=== PATIENT | female | born 1940 | race Caucasian/White ===

== ENCOUNTER → 2016-10-10 | Outpatient (CLI) | payer OTHER | END | disposition home or self-care (01) | LOC: CFH 08:36 | PROVIDERS: ATTEND Nurse Practitioner Primary Care | DX: Z12.31 Encounter for screening mammogram for malignant neoplasm of breast (principal) | CPT/HCPCS: G0202 ==

== ENCOUNTER 2018-10-01 12:20 | Outpatient (CLI) | payer MEDICARE | END 2018-10-01 23:59 | disposition home or self-care (01) | LOC: RAD 12:20 → EDSTATUS 14:00 → RAD 23:59 | PROVIDERS: ATTEND Nurse Practitioner Primary Care | DX: K76.0 Fatty (change of) liver, not elsewhere classified (principal); K86.89 Other specified diseases of pancreas; K44.9 Diaphragmatic hernia without obstruction or gangrene; M51.36 Other intervertebral disc degeneration, lumbar region; Z98.890 Other specified postprocedural states | CPT/HCPCS: 74178; Q9967 ==

== ENCOUNTER 2019-03-17 08:01 | Outpatient (CLI) | payer MEDICARE ==
[~2019-03-17 08:01] MED LIST: AMIT25TA PO; AMLO2.5T5 PO; ASPI-496 PO; ATOR20TA37 PO; CYAN100072 INJ; LACT1CAP61 PO; LOSA100T14 PO; MULT1TAB60 PO; NIAC400C5 PO; OMEG1CAP39 PO; [UNRECOGNIZED DRUG - CODE] PO
[2019-03-17] MEDS ORDERED: OMNIPAQUE 350 MG/ML, 100ML BOTTLE ONE (16:07)
== END 2019-03-17 23:59 | disposition home or self-care (01) ==
LOC: CFH 08:01
PROVIDERS: ATTEND Internal Medicine Geriatric Medicine
DX: K86.2 Cyst of pancreas (principal); I10 Essential (primary) hypertension; F32.9 Major depressive disorder, single episode, unspecified; E78.5 Hyperlipidemia, unspecified; R94.5 Abnormal results of liver function studies; F10.10 Alcohol abuse, uncomplicated; K58.0 Irritable bowel syndrome with diarrhea; Z86.010 Personal history of colon polyps; Z98.890 Other specified postprocedural states; Z88.5 Allergy status to narcotic agent
CPT/HCPCS: 74170; Q9967

== ENCOUNTER 2020-10-23 21:15 | Emergency (ER) | payer MEDICARE ==
[~2020-10-23 21:15] MED LIST changes: +MULT-449 PO; -MULT1TAB60 PO
[2020-10-24] MEDS ORDERED: KETOROLAC 30 MG/1 ML IM ONE
[2020-10-24 00:33] LABS: BASOPHILS % (AUTO) 1 % (0-1); EOSINOPHILS % (AUTO) 1 % (1-7); LYMPHOCYTES % (AUTO) 24 % (22-44); MEAN CORPUSCULAR HEMOGLOBIN 32.2 pg (27.0-34.8); MEAN CORPUSCULAR HGB CONC 34.9 g/dL (32.4-35.8); MEAN PLATELET VOLUME 7.7 fL (7.4-10.4); MONOCYTES % (AUTO) 9 % (2-9); NEUTROPHILS % (AUTO) 65 % (42-75); PLATELET COUNT 181 x10^3/uL (130-400); RED BLOOD COUNT 3.99 x10^6/uL (3.82-5.3); RED CELL DISTRIBUTION WIDTH 13.3 % (9.6-15.2)
[2020-10-24] MEDS ORDERED: LIDODERM 5% PATCH TD ONE ×2 (00:33)
[2020-10-24] MEDS ORDERED: KETOROLAC 30 MG/1 ML ONE (00:34)
[2020-10-24 00:47] LABS: ALBUMIN 3.6 g/dL (3.4-5.0); ANION GAP 8 mmol/L (5-15); CALCIUM 9.4 mg/dL (8.5-10.1); CHLORIDE 103 mmol/L (98-107); CREATININE 0.84 mg/dL (0.55-1.02)
--- NOTE | 2020-10-24 01:12 | NUR ---
UA SENT TO LAB
[2020-10-24 01:30] VITALS: BP 135/85
[2020-10-24 01:42] LABS: MICROSCOPIC INDICATED
--- NOTE | 2020-10-24 02:15 | NUR ---
Patient given discharge instructions and they have confirmed that they understand the instructions. Patient ambulatory with steady gait and is reporting feeling better and sitting and standing is more comfortable. NAD, all questions answered appropriately, denies additional needs at this time. No personal belongings left in room after discharge.
== END 2020-10-24 02:38 | disposition home or self-care (01) ==
LOC: ED 23:59
DX: S39.012A Strain of muscle, fascia and tendon of lower back, initial encounter (principal); I10 Essential (primary) hypertension; E78.00 Pure hypercholesterolemia, unspecified; Z87.891 Personal history of nicotine dependence; X58.XXXA Exposure to other specified factors, initial encounter; Y93.89 Activity, other specified; Y92.89 Other specified places as the place of occurrence of the external cause; Y99.8 Other external cause status
CPT/HCPCS: 36415; 72110; 73502; 80048; 81001; 82040; 85025; 87086; 96372; 99285; J1885